=== PATIENT | female | born 1945 | race Caucasian/White ===

== ENCOUNTER 2020-07-28 17:24 | Emergency (ER) | payer MEDICARE, SELFPAY ==
[2020-07-28 17:38] VITALS: BP 157/68; PULSE 61; RESP 16; TEMP 36.6; O2SAT 99
[2020-07-28 17:45] VITALS: BP 157/68; PULSE 61; RESP 16; TEMP 36.6; O2SAT 99
--- NOTE | 2020-07-28 17:58 | ED.WOUNDLAC ---
HPI - Wound/Laceration General Chief Complaint: Wound/Laceration Stated Complaint: left pinky lac Time Seen by Provider: 07/28/20 17:51 Source: patient and RN notes reviewed Mode of arrival: ambulatory Limitations: no limitations History of Present Illness HPI narrative: Patient presents today with a laceration to her left fifth finger. She cut her finger with a kitchen knife while cutting sweet potatoes approximately 50 minutes prior to arrival. She is up-to-date on her tetanus vaccine. Currently rates her pain 2/10. She has tried no [id number] treatment prior to arrival. Related Data Home Medications Medication Instructions Recorded Confirmed amlodipine 5 mg PO DAILY 07/28/20 07/28/20 clindamycin HCl 300 mg PO DAILY 07/28/20 07/28/20 hydrochlorothiazide 25 mg PO DAILY 07/28/20 07/28/20 metoprolol tartrate 25 mg PO DAILY 07/28/20 07/28/20 Allergies Allergy/AdvReac Type Severity Reaction Status Date / Time amoxicillin Allergy Unknown Rash Verified 04/12/16 12:12 codeine Allergy Unknown Verified 04/12/16 12:12 Sulfa (Sulfonamide Allergy Unknown Rash Verified 04/12/16 12:12 Antibiotics) atorvastatin AdvReac Unknown Nausea Verified 04/12/16 12:12 cilostazol AdvReac Unknown Verified 04/12/16 12:12 guaifenesin AdvReac Unknown Nausea and Verified 04/12/16 12:12 Vomiting pseudoephedrine AdvReac Unknown Nausea and Verified 04/12/16 12:12 Vomiting Review of Systems Review of Systems: Narrative: CONSTITUTIONAL: Denies body aches, fever, chills, or sweats. EYES: Denies visual changes, redness, or discharge. ENT: Denies rhinorrhea, congestion, sore throat, or otalgia. CARDIOVASCULAR: Denies chest pain, palpitations, or edema. RESPIRATORY: Denies cough or dyspnea. GASTROINTESTINAL: Denies abdominal pain, nausea, vomiting, or diarrhea. GENITOURINARY: Denies dysuria or hematuria. SKIN: Denies rash, itching. + Finger laceration MUSCULOSKELETAL: Denies back pain, joint pain, or myalgia. NEUROLOGIC: Denies headache, numbness, tingling, or weakness. PSYCH: Denies depression or anxiety. [facility] Surgical History Surgical History (Updated 07/28/20 @ 18:22 by Jaci Coley, ANGLE, ) S/P TAVR (transcatheter aortic valve replacement) Social History Social History Gender identity (if verbalized by the patient): Female Comments At time of signature, I have reviewed and agree with nursing past medical, surgical, social and family history unless otherwise noted. Please see nursing chart for further information. There is no relevant family history pertinent to the presenting complaint Exam Narrative: Exam Narrative: GENERAL: Well-appearing, well-nourished, and in no acute distress. HEAD: Normocephalic, atraumatic. EYES: EOMI. No redness or drainage. Conjunctivae normal. ENT: Mucous membranes pink and moist. NECK: Normal AROM. CHEST: No respiratory distress. EXTREMITIES: Normal range of motion. No edema. SKIN: Warm, dry, no rash. Capillary refill normal. Normal skin turgor. 2 x 6 cm superficial skin avulsion to the pad of the left fifth finger with moderate active bleeding. Distal sensation intact. Capillary refill normal. Full AROM. NEURO: No focal deficits. Alert and oriented x3. Gait steady. PSYCH: Normal affect. No signs of depression or anxiety. Course Vital Signs Vital signs: Vital Signs Temperature 97.8 F 07/28/20 17:38 Pulse Rate 61 07/28/20 17:38 Respiratory Rate 16 07/28/20 17:38 Blood Pressure 157/68 H 07/28/20 17:38 Pulse Oximetry 99 07/28/20 17:38 Temperature 97.8 F 07/28/20 17:45 Pulse Rate 61 07/28/20 17:45 Respiratory Rate 16 07/28/20 17:45 Blood Pressure 157/68 H 07/28/20 17:45 Pulse Oximetry 99 07/28/20 17:45 Reviewed. Pt has been instructed to follow up with her PCP regarding her elevated blood pressure today. Procedures Other Procedure Procedure 1: Other Procedure: Patient's skin avulsion would not stop bleeding with d
== END 2020-07-28 18:36 | disposition home or self-care (01) ==
PROVIDERS: Emergency Provider Nurse Practitioner; PCP Family Medicine
DX: S61.217A Laceration without foreign body of left little finger without damage to nail, initial encounter (principal); W26.0XXA Contact with knife, initial encounter
CPT/HCPCS: 12002; 99212; G0463

== ENCOUNTER 2022-10-08 13:06 | Emergency (ER) | payer MEDICARE, SELFPAY ==
[2022-10-08 13:16] VITALS: BP 130/59; PULSE 50; RESP 14; TEMP 36.9; O2SAT 99
--- NOTE | 2022-10-08 13:20 | ED.EYEPROB ---
HPI - Eye Problem General Chief complaint: Eye Problems Stated complaint: Foreign Body in Eye Source: patient and RN notes reviewed History of Present Illness HPI Narrative: 77 yo F presents to urgent care with complaints of a stuck contact lens in her left eye. Pt states she accidentally slept with them in last night and this morning, could not get the contact out. Pt states she thought she saw it when she was attempting earlier. Pt states she uses the contacts to read and she is unable to read now but contributes this to eye irritation. Denies any eye pain or photophobia. Related Data Home Medications Medication Instructions Recorded Confirmed alendronate 70 mg tablet See Rx Instructions .Route .COMPLEX 10/08/22 10/08/22 amlodipine 5 mg tablet 5 mg PO DAILY 10/08/22 10/08/22 fluticasone propionate 50 See Rx Instructions .Route .COMPLEX 10/08/22 10/08/22 mcg/actuation nasal spray,suspension hydrochlorothiazide 25 mg tablet 25 mg PO DAILY 10/08/22 10/08/22 isosorbide mononitrate 30 mg 30 mg PO DAILY 10/08/22 10/08/22 tablet,extended release 24 hr metoprolol tartrate 25 mg tablet 25 mg PO BID 10/08/22 10/08/22 omeprazole 20 mg capsule,delayed 20 mg PO BID 10/08/22 10/08/22 release rosuvastatin 20 mg tablet 20 mg PO DAILY 10/08/22 10/08/22 Allergies Allergy/AdvReac Type Severity Reaction Status Date / Time amoxicillin Allergy Unknown Rash Verified 10/08/22 13:15 codeine Allergy Unknown Unknown Verified 10/08/22 13:15 Sulfa (Sulfonamide Allergy Unknown Rash Verified 10/08/22 13:15 Antibiotics) atorvastatin AdvReac Unknown Nausea Verified 10/08/22 13:15 cilostazol AdvReac Unknown Unknown Verified 10/08/22 13:15 guaifenesin AdvReac Unknown Nausea and Verified 10/08/22 13:15 Vomiting pseudoephedrine AdvReac Unknown Nausea and Verified 10/08/22 13:15 Vomiting Review of Systems Review of Systems: CONSTITUTIONAL: Denies fever, chills, or sweats. EYES: Left eye irritation ENT: Denies otalgia and sore throat CARDIOVASCULAR: Denies chest pain, palpitations, or edema. RESPIRATORY: Denies cough or dyspnea. GASTROINTESTINAL: Denies abdominal pain, nausea, vomiting, or diarrhea. GENITOURINARY: Denies dysuria or hematuria. SKIN: Denies rash or itching. MUSCULOSKELETAL: Denies back pain, joint pain, or myalgia. NEUROLOGIC: Denies headache, numbness, or weakness. Pertinent positives per HPI. [facility] Surgical History Surgical History (Updated 07/28/20 @ 18:22 by Jaci Coley, [employer], ) S/P TAVR (transcatheter aortic valve replacement) Social History Social History Gender identity (if verbalized by the patient): Female Comments At the time of my signature, I reviewed and agree with the nursing past medical, surgical, social, and family history. There is no relevant family history pertinent to the patient complaint. Exam Narrative: GENERAL: This is a well-nourished, well-developed patient, in no apparent distress. HEAD: normocephalic, atraumatic. EYES: PERRL. Sclera clear/white. Vision is grossly intact. Carranza lamp exam performed- corneal abrasion noted to center of cornea. No FB noted on exam. Lid inversion performed with no FB noted. Pt tolerated well. EARS: External ears normal, auditory canals clear and without drainage. Hearing grossly intact. NOSE: External nose normal with no obvious nasal discharge, nares without redness, no rhinorrhea. THROAT: Mucous membranes moist, posterior pharynx clear. NECK: Neck supple, non-tender without lymphadenopathy, masses or thyromegaly. CARDIOVASCULAR: Regular rate RESPIRATORY: No respiratory distress SKIN: warm, intact with no suspicious lesions or rash, good texture and turgor. NEURO: awake, alert, and oriented to person, place and time. There were no obvious focal neurologic abnormalities. EXTREMITIES: No clubbing, cyanosis, or edema. No joint tenderness, effusion, or edema noted. BACK: Nontender without deformity or crepitus. No flank tend
[2022-10-08 13:37] VITALS: BP 130/59; PULSE 50; RESP 14; TEMP 36.9; O2SAT 99
== END 2022-10-08 13:45 | disposition home or self-care (01) ==
PROVIDERS: Emergency Provider Nurse Practitioner Family; PCP Family Medicine
DX: S05.02XA Injury of conjunctiva and corneal abrasion without foreign body, left eye, initial encounter (principal); X58.XXXA Exposure to other specified factors, initial encounter; Z95.2 Presence of prosthetic heart valve
CPT/HCPCS: 99213; A9270; G0463